=== PATIENT | male | born 1975 | race Caucasian/White ===

== ENCOUNTER 2016-08-03 07:53 | Emergency (ER) | payer SELFPAY ==
[~2016-08-03] VITALS: Ht 175.3 cm; Wt 80.1 kg
[~2016-08-03 07:53] MED LIST: ANAPROX DS550 M1 PO; BACTRIM,SEPT1 TABLET PO; CIPRO500 MG PO; CIPROFLOXACIN500 M1; DICLOFENAC SODI75 MG PO; ENDOCET 5-3251 EACH; FLEXERIL10 MG PO; FLOMAX0.4 MG PO; GABAPENTIN300 MG PO; KEFLEX500 MG PO; LEVAQUIN500 MG PO; MOTRIN600 MG PO; MOTRIN800 MG PO; NAPROSYN500 MG PO; NO HOME MEDS; NOHOMEMEDS; NORCO 5/3251 TABLET PO; NORCO 7.5/321 TABLET PO; PERCOCET 5/31 TABLET PO; SEPTRA DS TABL1 EACH PO; ULTRAM50 MG PO; VICODIN,LORT1 TABLET PO; ZOFRAN ODT4 MG PO; ZOFRAN ODT8 MG PO
[2016-08-03 08:36] LABS: HEMATOCRIT 45.3 % (38.0-50.0); MCH 30.7 PG (29.0-34.0); MCHC 33.1 G/DL (30.0-36.0); MCV 92.8 FL (86-99); MEAN PLAT.VOLUME 9.4 uM^3 (9.0-12.4); PLATELET COUNT 278 K/uL (156-360); RBC DIS.WIDTH-CV 11.9 % (11.8-14.6); RBC DIS.WIDTH-SD 41.1 % (39-53); RED BLOOD COUNT 4.88 M/uL (4.00-5.50); WHITE BLOOD COUNT 11.8 K/uL (4.1-10.2)
[2016-08-03 08:46] LABS: CHLORIDE 108 mEq/L (99-109); POTASSIUM 3.5 mEq/L (3.7-5.4); SODIUM 139 mEq/L (136-147)
[2016-08-03 08:48] LABS: GLUCOSE 100 mg/dL (70-99)
[2016-08-03 08:49] LABS: ANION GAP 9 MEQ/L (2-14)
[2016-08-03 08:50] LABS: D-DIMER ELISA 0.47 mg/L FEU (< 0.57)
[2016-08-03 08:52] LABS: GFR ESTIMATE (CALCULATED) > 59 mL/min/
[2016-08-03 08:53] LABS: UREA NITROGEN (BUN) 13 mg/dL (9-23)
[2016-08-03 08:58] LABS: TROP-I INTERPRETATION NEGATIVE; TROPONIN-I 0.01 ng/mL (0.0-0.30)
[2016-08-03 11:44] LABS: TROP-I INTERPRETATION NEGATIVE; TROPONIN-I 0.02 ng/mL (0.0-0.30)
[2016-08-03] MEDS ORDERED: ASPIR 8181 M1 PO (12:11)
[2016-08-03 12:23] VITALS: BP 121/83
== END 2016-08-03 12:25 | disposition left against medical advice (07) ==
LOC: EME 07:53
PROVIDERS: Emergency Medicine
DX: R07.9 Chest pain, unspecified (principal); F17.200 Nicotine dependence, unspecified, uncomplicated; Z82.49 Family history of ischemic heart disease and other diseases of the circulatory system
CPT/HCPCS: 71020; 80048; 84484; 85027; 85379; 93005; 99281; 99284

== ENCOUNTER 2016-08-20 03:23 | Inpatient (IN) | payer OTHER ==
[~2016-08-20] VITALS: Ht 175.3 cm; Wt 82.5 kg
[~2016-08-20 03:23] MED LIST changes: +ASPIR 8181 M1 PO
[2016-08-20 04:15] LABS: HEMATOCRIT 40.9 % (38.0-50.0); MCH 30.5 PG (29.0-34.0); MCV 95.3 FL (86-99); MEAN PLAT.VOLUME 9.5 uM^3 (9.0-12.4); PLATELET COUNT 249 K/uL (156-360); RBC DIS.WIDTH-CV 12.2 % (11.8-14.6); RBC DIS.WIDTH-SD 42.5 % (39-53); RED BLOOD COUNT 4.29 M/uL (4.00-5.50); WHITE BLOOD COUNT 12.7 K/uL (4.1-10.2)
[2016-08-20 04:26] LABS: CHLORIDE 106 mEq/L (99-109); POTASSIUM 3.4 mEq/L (3.7-5.4); SODIUM 141 mEq/L (136-147)
[2016-08-20 04:27] LABS: GLUCOSE 96 mg/dL (70-99)
[2016-08-20 04:27] LABS: D-DIMER ELISA 0.36 mg/L FEU (< 0.57); INTER. NORMALIZED RATIO 1.1; PROTHROMBIN TIME 11.5 (9.2-11.2); PTT 26.2 (25-32)
[2016-08-20 04:29] LABS: ANION GAP 9 MEQ/L (2-14)
[2016-08-20 04:31] LABS: GFR ESTIMATE (CALCULATED) > 59 mL/min/
[2016-08-20 04:32] LABS: UREA NITROGEN (BUN) 17 mg/dL (9-23)
[2016-08-20 04:36] LABS: TROP-I INTERPRETATION NEGATIVE; TROPONIN-I < 0.01 ng/mL (0.0-0.30)
[2016-08-20 06:17] LABS: CREATINE KINASE 57 IU/L (1-294)
[2016-08-20 07:19] LABS: Estimated Average Glucose 105 mg/dL (70-123); HEMOGLOBIN A1c (GLYCOHEMOGLOB) 5.3 % HGB (Below 5.7)
[2016-08-20 07:27] VITALS: BP 95/51
[2016-08-20 07:33] LABS: HDL CHOLESTEROL 36 MG/DL (Desirable>=40); LDL CHOLESTEROL 114 mg/dL (Desirable<100); NON-HDL CHOLESTEROL 138 mg/dL (Desirable<160); TOTAL CHOLESTEROL 174 mg/dL (Desirable<200); TRIGLYCERIDES 122 MG/DL (Normal: <150)
[2016-08-20 10:14] LABS: HEMATOCRIT 41.1 % (38.0-50.0); MCH 30.5 PG (29.0-34.0); MCHC 31.9 G/DL (30.0-36.0); MCV 95.6 FL (86-99); MEAN PLAT.VOLUME 9.8 uM^3 (9.0-12.4); PLATELET COUNT 251 K/uL (156-360); RBC DIS.WIDTH-CV 12.3 % (11.8-14.6); WHITE BLOOD COUNT 11.3 K/uL (4.1-10.2)
[2016-08-20 11:48] VITALS: BP 99/52
[2016-08-20 13:04] LABS: TROP-I INTERPRETATION NEGATIVE; TROPONIN-I 0.01 ng/mL (0.0-0.30)
[2016-08-20 15:57] VITALS: BP 111/69
[2016-08-20 17:48] LABS: TROP-I INTERPRETATION NEGATIVE; TROPONIN-I 0.02 ng/mL (0.0-0.30)
[2016-08-20 20:00] VITALS: BP 113/69
[2016-08-20 23:55] VITALS: BP 120/77
[2016-08-21] VITALS (9 sets, daily range): BP systolic 102–173; BP diastolic 65–98
[2016-08-21 02:25] LABS: BASOPHIL COUNT 0.1 K/uL (0-0.1); EOSINOPHIL (%) 5.7 % (0-5); EOSINOPHIL COUNT 0.6 K/uL (0-0.3); HEMATOCRIT 41.9 % (38.0-50.0); IMMATURE GRANULOCYTE (%) 0.5 % (0.0-0.7); IMMATURE GRANULOCYTE COUNT 0.1 K/uL; INSTRUMENT ABS NEUTROPHIL CT 4.7 K/uL; LYMPHOCYTE COUNT 4.4 K/uL (1.0-2.8); MCH 30.4 PG (29.0-34.0); MEAN PLAT.VOLUME 9.8 uM^3 (9.0-12.4); MONOCYTE (%) 6.4 % (3-12); MONOCYTE COUNT 0.7 K/uL (0-0.8); NEUTROPHIL (%) 44.5 % (45-76); NEUTROPHIL COUNT 4.7 K/uL (1.8-6.4); PLATELET COUNT 242 K/uL (156-360); RBC DIS.WIDTH-CV 12.2 % (11.8-14.6); RED BLOOD COUNT 4.41 M/uL (4.00-5.50); WHITE BLOOD COUNT 10.5 K/uL (4.1-10.2)
[2016-08-21 02:38] LABS: INTER. NORMALIZED RATIO 1.1; PROTHROMBIN TIME 11.4 (9.2-11.2); PTT 51.6 (25-32)
[2016-08-21 03:13] LABS: CHLORIDE 110 mEq/L (99-109); POTASSIUM 3.9 mEq/L (3.7-5.4); SODIUM 140 mEq/L (136-147)
[2016-08-21 03:14] LABS: MAGNESIUM 1.7 mg/dL (1.3-2.7)
[2016-08-21 03:16] LABS: GLUCOSE 98 mg/dL (70-99)
[2016-08-21 03:17] LABS: ANION GAP 8 MEQ/L (2-14)
[2016-08-21 03:18] LABS: TOTAL BILIRUBIN 0.3 mg/dL (0.0-1.0)
[2016-08-21 03:19] LABS: ALKALINE PHOSPHATASE 47 IU/L (3-129); GFR ESTIMATE (CALCULATED) > 59 mL/min/
[2016-08-21 03:20] LABS: UREA NITROGEN (BUN) 21 mg/dL (9-23)
[2016-08-21 04:22] LABS: CREATINE KINASE 46 IU/L (1-294); TOTAL CK 46 IU/L (1-294)
[2016-08-21 04:28] LABS: CK-MB 0.4 ng/mL (0.0-4.9)
[2016-08-21 04:33] LABS: TROP-I INTERPRETATION NEGATIVE; TROPONIN-I 0.06 ng/mL (0.0-0.30)
[2016-08-21 05:48] LABS: METH RESISTANT S AUREUS PCR NEGATIVE (NEGATIVE)
[2016-08-21 05:49] LABS: PROBE CHECK PASS; SPECIMEN PROCESSING CONTROL PASS
[2016-08-22 00:56] VITALS: BP 152/86
[2016-08-22 04:37] VITALS: BP 133/75
[2016-08-22 05:54] LABS: BASOPHIL COUNT 0.1 K/uL (0-0.1); EOSINOPHIL (%) 4.9 % (0-5); EOSINOPHIL COUNT 0.5 K/uL (0-0.3); HEMATOCRIT 42.1 % (38.0-50.0); IMMATURE GRANULOCYTE (%) 0.4 % (0.0-0.7); LYMPHOCYTE COUNT 3.4 K/uL (1.0-2.8); MCH 31.3 PG (29.0-34.0); MCV 94.8 FL (86-99); MEAN PLAT.VOLUME 9.9 uM^3 (9.0-12.4); MONOCYTE (%) 7.9 % (3-12); MONOCYTE COUNT 0.8 K/uL (0-0.8); NEUTROPHIL (%) 51.1 % (45-76); PLATELET COUNT 247 K/uL (156-360); RBC DIS.WIDTH-CV 12.2 % (11.8-14.6); RBC DIS.WIDTH-SD 42.5 % (39-53); RED BLOOD COUNT 4.44 M/uL (4.00-5.50); WHITE BLOOD COUNT 9.7 K/uL (4.1-10.2)
[2016-08-22 06:48] LABS: ALKALINE PHOSPHATASE 52 IU/L (3-129); ANION GAP 7 MEQ/L (2-14); CHLORIDE 108 MEQ/L (99-109); GFR ESTIMATE (CALCULATED) > 59 mL/min/; GLUCOSE 87 mg/dL (70-99); SAMPLE HEMOLYSIS CHECK 0; SAMPLE ICTERIC CHECK 0; SAMPLE LIPEMIA CHECK 0; SODIUM 139 MEQ/L (136-147); TOTAL BILIRUBIN 0.3 MG/DL (0.0-1.0); UREA NITROGEN (BUN) 15 mg/dL (9-23)
[2016-08-22] MEDS ORDERED: PLAVIX75 MG PO (07:23)
[2016-08-22] MEDS ORDERED: NICODERM CQ1 EAC2 TD (07:23)
[2016-08-22] MEDS ORDERED: LIPITOR40 MG PO (07:23)
[2016-08-22] MEDS ORDERED: NITROGLYCERIN0.4 MG SL (07:23)
[2016-08-22] MEDS ORDERED: LOPRESSOR25 MG PO (07:23)
[2016-08-22] MEDS ORDERED: ASPIRIN325 MG PO (07:23)
[2016-08-22 09:24] VITALS: BP 129/75
[2016-08-22 11:29] VITALS: BP 159/91
== END 2016-08-22 14:00 | disposition home or self-care (01) | DRG 247 ==
LOC: EME 03:23 → EDOF 05:33 → 5WEST 05:33 → 4WEST 08-21 04:14 → 4EAST 08-21 04:16 → 4WEST 08-21 06:55 → 4EAST 08-21 16:28
PROVIDERS: Emergency Medicine; Internal Medicine; Nurse Practitioner Adult Health
DX: I25.110 Atherosclerotic heart disease of native coronary artery with unstable angina pectoris (principal); F17.210 Nicotine dependence, cigarettes, uncomplicated; Z82.49 Family history of ischemic heart disease and other diseases of the circulatory system; Z87.442 Personal history of urinary calculi
CPT/HCPCS: 71020; 80048; 80053; 80061; 82550; 82553; 83036; 83735; 84484; 85025; 85027; 85347; 85379; 85610; 85730; 87641; 93005; 94760; 94799; 99281; 99285; C1725; C1769; C1874; C1887; G0378; J1644; J2250; J2270; J3010; J7030

== ENCOUNTER → 2016-08-25 | Emergency (ER) | payer OTHER ==
[~2016-08-25] VITALS: Ht 175.3 cm; Wt 80.0 kg
[~2016-08-25] MED LIST changes: +ASPIRIN325 MG PO; +LIPITOR40 MG PO; +LOPRESSOR25 MG PO; +NICODERM CQ1 EAC2 TD; +NITROGLYCERIN0.4 MG SL; +PLAVIX75 MG PO
[2016-08-25 09:21] VITALS: BP 111/71
[2016-08-25 10:24] LABS: BASOPHIL COUNT 0.1 K/uL (0-0.1); EOSINOPHIL (%) 4.9 % (0-5); EOSINOPHIL COUNT 0.5 K/uL (0-0.3); HEMATOCRIT 47.8 % (38.0-50.0); IMMATURE GRANULOCYTE (%) 0.5 % (0.0-0.7); IMMATURE GRANULOCYTE COUNT 0.1 K/uL; INSTRUMENT ABS NEUTROPHIL CT 5.8 K/uL; LYMPHOCYTE COUNT 2.5 K/uL (1.0-2.8); MCH 30.6 PG (29.0-34.0); MCHC 32.8 G/DL (30.0-36.0); MCV 93.2 FL (86-99); MEAN PLAT.VOLUME 9.7 uM^3 (9.0-12.4); MONOCYTE (%) 7.2 % (3-12); MONOCYTE COUNT 0.7 K/uL (0-0.8); NEUTROPHIL (%) 60.5 % (45-76); NEUTROPHIL COUNT 5.8 K/uL (1.8-6.4); PLATELET COUNT 303 K/uL (156-360); RBC DIS.WIDTH-CV 12.1 % (11.8-14.6); RBC DIS.WIDTH-SD 41.9 % (39-53); RED BLOOD COUNT 5.13 M/uL (4.00-5.50); WHITE BLOOD COUNT 9.5 K/uL (4.1-10.2)
[2016-08-25 10:27] LABS: COLOR BLOODY ((YELLOW)); GLUCOSE (STRIP) NEGATIVE; KETONES NEGATIVE; LEUKOCYTES LARGE; NITRITE NEGATIVE; PROTEIN (STRIP) 100; SPECIFIC GRAVITY 1.015 (1.000-1.030)
[2016-08-25 10:28] LABS: ADD MIUA? YES; BILIRUBIN NEGATIVE; BLOOD LARGE; UROBILINOGEN 0.2 MG/DL (0.2-1.0)
[2016-08-25 10:29] LABS: RED BLOOD CELLS TNTC /HPF (0-5)
[2016-08-25 10:31] LABS: UCUL ADDED? YES
[2016-08-25 10:33] LABS: CHLORIDE 105 mEq/L (99-109); POTASSIUM 4.2 mEq/L (3.7-5.4); SODIUM 141 mEq/L (136-147)
[2016-08-25 10:34] LABS: GLUCOSE 91 mg/dL (70-99)
[2016-08-25 10:36] LABS: ANION GAP 11 MEQ/L (2-14); INTER. NORMALIZED RATIO 1.1; PROTHROMBIN TIME 11.5 (9.2-11.2); PTT 28.2 (25-32)
[2016-08-25 10:38] LABS: GFR ESTIMATE (CALCULATED) > 59 mL/min/
[2016-08-25 10:39] LABS: UREA NITROGEN (BUN) 19 mg/dL (9-23)
== END | disposition left against medical advice (07) ==
LOC: EME 09:07
PROVIDERS: Emergency Medicine
DX: R31.9 Hematuria, unspecified (principal); Z53.21 Procedure and treatment not carried out due to patient leaving prior to being seen by health care provider
CPT/HCPCS: 80048; 81003; 85025; 85610; 85730; 87086

== ENCOUNTER 2016-08-26 06:42 | Emergency (ER) | payer OTHER ==
[~2016-08-26] VITALS: Ht 175.3 cm; Wt 77.2 kg
[2016-08-26 07:46] LABS: HEMATOCRIT 47.7 % (38.0-50.0); MCH 30.5 PG (29.0-34.0); MCHC 32.5 G/DL (30.0-36.0); MCV 93.9 FL (86-99); MEAN PLAT.VOLUME 9.7 uM^3 (9.0-12.4); PLATELET COUNT 307 K/uL (156-360); RBC DIS.WIDTH-CV 12.2 % (11.8-14.6); RBC DIS.WIDTH-SD 42.5 % (39-53); RED BLOOD COUNT 5.08 M/uL (4.00-5.50); WHITE BLOOD COUNT 10.7 K/uL (4.1-10.2)
[2016-08-26 07:49] LABS: ADD MIUA? YES; BILIRUBIN NEGATIVE; BLOOD LARGE; COLOR RED ((YELLOW)); GLUCOSE (STRIP) NEGATIVE; KETONES NEGATIVE; LEUKOCYTES LARGE; NITRITE NEGATIVE; PH, URINE 6.5 (5-8); PROTEIN (STRIP) >300; UROBILINOGEN 0.2 MG/DL (0.2-1.0)
[2016-08-26 08:09] LABS: BACTERIA 3+ /HPF; EPITHELIAL CELLS NONE SEEN /HPF; GRANULAR CASTS TNTC /LPF; HYALINE CASTS TNTC /LPF; MUCUS 4+ /LPF; RED BLOOD CELLS TNTC /HPF (0-5); UCUL ADDED? YES; WHITE BLOOD CELLS TNTC /HPF (0-5)
[2016-08-26 08:19] LABS: ALKALINE PHOSPHATASE 58 IU/L (3-129); ANION GAP 9 MEQ/L (2-14); CHLORIDE 105 MEQ/L (99-109); GFR ESTIMATE (CALCULATED) > 59 mL/min/; GLUCOSE 77 mg/dL (70-99); POTASSIUM 3.6 MEQ/L (3.7-5.4); SAMPLE HEMOLYSIS CHECK 0; SAMPLE ICTERIC CHECK 0; SAMPLE LIPEMIA CHECK 0; SODIUM 141 MEQ/L (136-147); TOTAL BILIRUBIN 0.5 MG/DL (0.0-1.0); UREA NITROGEN (BUN) 23 mg/dL (9-23)
[2016-08-26 09:47] LABS: INTER. NORMALIZED RATIO 1.1; PROTHROMBIN TIME 11.5 (9.2-11.2); PTT 28.1 (25-32)
[2016-08-26] MEDS ORDERED: CIPRO500 MG PO (11:24)
[2016-08-26 11:31] VITALS: BP 121/71
== END 2016-08-26 11:31 | disposition home or self-care (01) ==
LOC: EME 06:42
PROVIDERS: Emergency Medicine; Nurse Practitioner Family
DX: N20.0 Calculus of kidney (principal); R31.9 Hematuria, unspecified; Z87.442 Personal history of urinary calculi; I25.2 Old myocardial infarction; Z95.5 Presence of coronary angioplasty implant and graft; Z79.01 Long term (current) use of anticoagulants; Z79.82 Long term (current) use of aspirin
CPT/HCPCS: 74176; 80053; 81003; 85027; 85610; 85730; 87086; 99281; 99284

== ENCOUNTER 2016-10-20 08:34 | Observation (INO) | payer OTHER ==
[~2016-10-20] VITALS: Ht 175.3 cm; Wt 76.2 kg
[2016-10-20 09:52] LABS: HEMATOCRIT 45.6 % (38.0-50.0); MCH 30.7 PG (29.0-34.0); MCHC 33.8 G/DL (30.0-36.0); MEAN PLAT.VOLUME 9.8 uM^3 (9.0-12.4); PLATELET COUNT 301 K/uL (156-360); RBC DIS.WIDTH-CV 11.9 % (11.8-14.6); RBC DIS.WIDTH-SD 39.6 % (39-53); RED BLOOD COUNT 5.01 M/uL (4.00-5.50); WHITE BLOOD COUNT 12.8 K/uL (4.1-10.2)
[2016-10-20 10:02] LABS: CHLORIDE 109 mEq/L (99-109); POTASSIUM 3.6 mEq/L (3.7-5.4); SODIUM 141 mEq/L (136-147)
[2016-10-20 10:04] LABS: GLUCOSE 107 mg/dL (70-99)
[2016-10-20 10:05] LABS: ANION GAP 11 MEQ/L (2-14)
[2016-10-20 10:06] LABS: TOTAL BILIRUBIN 0.9 mg/dL (0.0-1.0)
[2016-10-20 10:07] LABS: ALKALINE PHOSPHATASE 87 IU/L (3-129)
[2016-10-20 10:08] LABS: GFR ESTIMATE (CALCULATED) > 59 mL/min/
[2016-10-20 10:09] LABS: UREA NITROGEN (BUN) 14 mg/dL (9-23)
[2016-10-20 11:36] LABS: ADD MIUA? YES; BILIRUBIN NEGATIVE; BLOOD LARGE; COLOR RED ((YELLOW)); GLUCOSE (STRIP) NEGATIVE; KETONES TRACE; LEUKOCYTES LARGE; NITRITE NEGATIVE; PROTEIN (STRIP) 300; SPECIFIC GRAVITY 1.015 (1.000-1.030); UROBILINOGEN 0.2 MG/DL (0.2-1.0)
[2016-10-20 11:37] LABS: RED BLOOD CELLS TNTC /HPF (0-5); UCUL ADDED? YES; WHITE BLOOD CELLS TNTC /HPF (0-5)
[2016-10-20 15:04] VITALS: BP 164/105
== END 2016-10-20 15:04 | disposition left against medical advice (07) ==
LOC: EME 08:34 → EDOF 13:06 → ENRESERV 13:18 → EDOF 13:18 → CANRESERV 13:50 → ENRESERV 13:50 → EDOF 15:04
PROVIDERS: Emergency Medicine
DX: N13.2 Hydronephrosis with renal and ureteral calculous obstruction (principal); Z87.442 Personal history of urinary calculi; I25.10 Atherosclerotic heart disease of native coronary artery without angina pectoris; Z95.5 Presence of coronary angioplasty implant and graft; Z79.82 Long term (current) use of aspirin; Z79.01 Long term (current) use of anticoagulants; I10 Essential (primary) hypertension; D72.829 Elevated white blood cell count, unspecified; F12.10 Cannabis abuse, uncomplicated; F17.210 Nicotine dependence, cigarettes, uncomplicated; Z82.49 Family history of ischemic heart disease and other diseases of the circulatory system
CPT/HCPCS: 74176; 80048; 80053; 81003; 85027; 87086; 99281; 99284; G0378; J1885; J2270; J2405; J7030